=== PATIENT | female | born 1995 | race African-American/Black ===

== ENCOUNTER 2017-06-14 09:03 | Emergency (ER) | payer OTHER ==
[2017-06-14 09:14] VITALS: BP 115/68; PULSE 60; TEMP 97.9; BMI 28.3
--- NOTE | 2017-06-14 10:10 | PDOC ---
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 Patient recently started dancing several months ago, hip hop, states that she developed right knee pain about one week ago thought of sickle cell treated herself pain that normally feels like sickle cell has resolved however patient still with pain to right medial knee. Feels it knee is swollen however there is no evidence on assessment. Able to ambulate without a limp. REVIEW OF SYSTEMS: GENERAL: Afebrile, A&O x3 RESPIRATORY: No cough, wheezing, or hemoptysis. CARDIAC: No CP or SOB MUSCULOSKELETAL: Pain to right medial knee. SKIN : No erythema, no edema, no bruising, no deformity. NEUROLOGICAL: Denies any numbness or tingling. PHYSICAL EXAM: GENERAL: The patient is awake, alert, and fully oriented, in no acute distress. HEAD: Normal with no signs of trauma. RESPIRATORY: Lungs clear bilaterally no rhonchi, rales, or wheezes CARDIAC: S1-S2 audible, no murmur rub or gallop EXTREMITIES: Good ROm with pain to the right medial knee, no fluid appreciated, no bulge sign. No pain to superior or inferior patella. Negative drop test. Negative posterior leg test. No joint laxity noted, no ecchymosis, no deformity , no abrasions ,no edema. +3 popliteal pulse. Negative Homans sign. No calf pain or tenderness, no erythema or edema. MUSCULOSKELETAL: No spinal point tenderness. SKIN: Warm, Dry, normal turgor, no erythema, no edema no bruising. Past History - Past Medical History Allergies/Adverse Reactions: Allergies Allergy/AdvReac Type Severity Reaction Status Date / Time No Known Allergies Allergy Verified 06/14/17 09:08 Home Medications: Ambulatory Orders NK [No Known Home Medication] 06/14/17 Anemia: Yes (SICKLE CELL) Other medical history: Avascular necrosis both shoulders - Immunization History Td Vaccination: Yes Immunization Up to Date: Yes - Suicide/Smoking/Psychosocial Hx Smoking Status: No Smoking History: Never smoked Years of Tobacco Use: 0 Number of Cigarettes Smoked Daily: 0 Cigars Per Day: 0 Information on smoking cessation initiated: No Hx Alcohol Use: No Drug/Substance Use Hx: No Substance Use Type: None *Physical Exam - Vital Signs Last Vital Signs Temp Pulse Resp BP Pulse Ox 97.9 F 60 18 115/68 98 06/14/17 09:06 06/14/17 09:06 06/14/17 09:06 06/14/17 09:06 06/14/17 09:06 ED Treatment Course - RADIOLOGY Radiology Studies Ordered: Category Date Time Status KNEE 3 POS-RIGHT [RAD] Stat Radiology 06/14/17 10:04 Ordered Medical Decision Making - Medical Decision Making 06/14/17 10:09 A/P: Patient here for evaluation of right knee pain. Patient states that she does not have generalized pain pain is only localized to right medial knee and feels localized swelling to area. Able to ambulate with no limp. To be sickle cell crisis. We'll send patient for x-ray to rule out injury or effusion 06/14/17 11:27 X-ray result is still pending, father is in the medical field and concerned patient may have DVT in regards to history of sickle cell, osteomyelitis to same leg. Patient without calf pain, Homans negative however based upon patient 's history of field is reasonable at this time to perform DVT evaluation. Ultrasound ordered. X-ray with no evidence of effusion, ultrasound with no evidence of DVT. Patient placed in immobilizer. Motrin for pain Keep immobilizer on until follow-up with orthopedics I discussed the physical exam findings, ancillary test results and final diagnoses with the patient. I answered all of the patient's questions. The patient was satisfied with the care received and felt comfortable with the discharge plan and treatment plan. The patient will call to arrange follow-up and will return to the Emergency Department with any new, persistent or worsening symptoms. *DC/Admit/Observation/Transfer Diagnosis at time of Disposition: Right knee pain Qualifiers: Chronicity: acute Qualified Code(s): M25.561 - Pain in right knee - Discharge Dispostion Disposition: HOME Condition at time of disposition: Good Admit: No - Referrals Referrals: Matt Mahmood MD [Primary Care Provider] - Mitch Whyte MD [Staff Physician] - - Patient Instructions Printed Discharge Instructions: DI for Knee Pain Additional Instructions: 1. Please return to the emergency department with any redness, swelling, increased pain, or any other concerns. 2. Keep splint on to rest knee, until pain resolved. 3. Please follow up in the office of Dr. Whyte within a week if pain persists. 4. No weightbearing 5. Ice and elevate when at rest. 6. Motrin for pain - Post Discharge Activity Forms/Work/School Notes: Back to Work, Back to School
== END 2017-06-14 12:48 | disposition home or self-care (01) ==
LOC: JERFT 09:03
DX: M25.561 Pain in right knee (principal); D57.1 Sickle-cell disease without crisis; M87.812 Other osteonecrosis, left shoulder; M87.811 Other osteonecrosis, right shoulder; Z87.39 Personal history of other diseases of the musculoskeletal system and connective tissue
CPT/HCPCS: 73562-TC-RT; 84703; 93971-TC; 99281-25

== ENCOUNTER 2017-08-28 11:28 | Emergency (ER) | payer OTHER ==
[2017-08-28 11:41] VITALS: BMI 29.9
--- NOTE | 2017-08-28 12:50 | PDOC ---
Attending Attestation - HPI HPI: 08/28/17 14:16 Pt is a 21 yo F with a PMHx of Sickle Cell Anemia and bilateral shoulder avascular necrosis who presents to the ED with shoulder pain. Patient reports taking percocet at home with no relief and presents to the ED for further evaluation. PCP: Dr. Song - Physicial Exam PE: 08/28/17 14:16 GENERAL: Awake, alert, and fully oriented, in no acute distress HEAD: No signs of trauma EYES: PERRLA, EOMI, conjunctiva clear. +Mild scleral icterus. ENT: Auricles normal inspection, hearing grossly normal, nares patent, oropharynx clear without exudates. Moist mucosa NECK: Normal ROM, supple, no lymphadenopathy, JVD, or masses LUNGS: Breath sounds equal, clear to auscultation bilaterally. No wheezes, and no crackles HEART: Regular rate and rhythm, normal S1 and S2, no murmurs, rubs or gallops ABDOMEN: Soft, nontender, normoactive bowel sounds. No guarding, no rebound. No masses EXTREMITIES: Normal range of motion, no edema. No clubbing or cyanosis. No cords, erythema, or tenderness. +Tender to L lower ribs. +Tender to lateral aspect of L shoulder. NEUROLOGICAL: Cranial nerves II through XII grossly intact. Normal speech, normal gait SKIN: Warm, Dry, normal turgor, no rashes or lesions noted. - Medical Decision Making 08/28/17 14:16 Documentation prepared by Tiff Hughes, acting as medical laboratory scientist for Martha Bowman DO. <Tiff Hughes - Last Filed: 08/28/17 14:16> - Resident Resident Name: Binu Alfaro - ED Attending Attestation I have performed the following: I have examined & evaluated the patient, The case was reviewed & discussed with the resident, I agree w/resident's findings & plan, Exceptions are as noted - Medical Decision Making 08/28/17 12:50 I, Dr. Martha Bowman DO, attest that this document has been prepared under my direction and personally reviewed by me in its entirety. I further attest, that it accurately reflects all work, treatment, procedures and medical decision -making performed by me. 08/28/17 13:42 a/p: 21yo female with hx of SCD and AVN with L shoulder pain and rib pain -has had cough -has had transfusions - last september -is taking hydroxyurea -will check labs, retic count, pain control, ivf hydration -will obtain xrays 08/28/17 15:53 re-eval: shoulder xray shows cystic changes states she will follow up with dr. del cid (her orthopedist) for further eval of shoulder pain pt feeling much better. pt stable for d/c to home hgb stable at 9.6 retic at 7 08/28/17 15:57 pt feeling much better and resquesting to go home. <Martha Bowman - Last Filed: 08/28/17 16:03> Discharge Disposition - Discharge Dispostion Admit: No <Martha Bowman - Last Filed: 08/28/17 16:03> - Diagnosis Sickle cell anemia, Sickle cell pain crisis - Discharge Dispostion Disposition: HOME Condition at time of disposition: Stable - Prescriptions Prescriptions: Acetaminophen W/ Codeine #3 [Tylenol # 3 -] 1 tab PO Q6H PRN #20 tablet MDD 4 tabs PRN Reason: Pain - Referrals Referrals: Matt Mahmood MD [Primary Care Provider] - whitley del cid [Other] - Patient Instructions Printed Discharge Instructions: DI for Sickle Cell Anemia, Pain Crisis -- Adult Additional Instructions: Please continue to take your medications as prescribed. Please also take folate. Please follow up with your orthopedist for the xray results. Please return to the ED with any concerns. Please follow up with your glazier stained glass. - Post Discharge Activity
[2017-08-28] MEDS ORDERED: SODIUM CHLORIDE 0.9% 1000 ML INFUS.BAG IV ONE (12:58)
[2017-08-28] MEDS ORDERED: ACETAMINOPHEN WITH CODEINE 300MG/30MG TABLET PO ONE (12:58)
[2017-08-28] MEDS ORDERED: ACETAMINOPHEN WITH CODEINE 300MG/30MG TABLET ONE (13:17)
[2017-08-28 13:51] LABS: MCH 27.3 pg (25.7-33.7); MCHC 32.8 g/dl (32.0-36.0); MEAN CELL VOLUME 83.3 fl (80-96); MEAN PLT VOLUME 7.8 fl (7.5-11.1); PLATELET COUNT 505 K/MM3 (134-434); RDW 17.6 % (11.6-15.6); WHITE BLOOD COUNT 10.8 K/mm3 (4.0-10.0)
[2017-08-28 14:48] LABS: ANION GAP 9 (8-16); CALCIUM 9.3 mg/dL (8.5-10.1); CO2 26 mmol/L (21-32); GLUCOSE,RANDOM 77 mg/dL (74-106)
[2017-08-28 14:52] LABS: ALK PHOS 82 U/L (45-117); BILIRUBIN,TOTAL 2.9 mg/dL (0.2-1.0); CREATININE 0.6 mg/dL (0.55-1.02); SGPT/ALT 38 U/L (12-78); TOT PROT 7.5 g/dl (6.4-8.2)
[2017-08-28 14:54] LABS: SGOT/AST 53 U/L (15-37)
[2017-08-28 16:29] VITALS: BP 128/70; PULSE 80; TEMP 98
[2017-08-28 16:53] LABS: REACTIVE LYMPHOCYTES 4 % (0-80); TOTAL CELLS COUNTED 100
[2017-08-28 17:04] LABS: ANISOCYTOSIS 2+; MACROCYTOSIS 1+; MICROCYTOSIS 1+; POIKILOCYTOSIS 2+; POLYCHROMASIA 1+
[2017-08-28 17:05] LABS: HOWELL-JOLLY BODIES SEEN
[2017-08-28 17:06] LABS: PLATELET ESTIMATE SLT INCREASE
== END 2017-08-28 16:15 | disposition home or self-care (01) ==
LOC: JERFT 11:28 → JER 11:28
PROC: 3E0337Z Introduction of Electrolytic and Water Balance Substance into Peripheral Vein, Percutaneous Approach (ICD-10-PCS; principal; 2017-08-28)
DX: E87.1 Hypo-osmolality and hyponatremia (principal); D57.00 Hb-SS disease with crisis, unspecified; D57.80 Other sickle-cell disorders without crisis
CPT/HCPCS: 36415; 71020-TC; 73030-TC-LT; 80053; 84703; 85025; 85044; 99283-25

== ENCOUNTER 2017-11-16 13:08 | Emergency (ER) | payer OTHER ==
[2017-11-16 13:13] VITALS: TEMP 98.3; BMI 64.4
--- NOTE | 2017-11-16 14:08 | PDOC ---
History of Present Illness - General History Source: Patient Exam Limitations: No Limitations - History of Present Illness Initial Comments: CHIEF COMPLAINT: 21 y/o afebrile female with PMH sickle cell, osteomyelitis of right leg and avascular necrosis of b/l shoulders c/o left knee pain x 1 week. HISTORY OF PRESENT ILLNESS: The patient states the pain in her left knee/leg started 1 week ago. She admits it was atraumatic, describes the pain as intermittent, sharp when lying down and more dull with weight bearing. She assumed it was her sickle cell pain and treated it with hot packs and tylenol with codeine without improvement. She is able to ambulate with pain. She denies fever, trauma to affected knee, recent travel, numbness/tingling to left lower extremity. Vital signs on arrival are within normal limits. PCP is Dr. Mahmood [employer] Programmer is Dr. Golden REVIEW OF SYSTEMS: GENERAL/CONSTITUTIONAL: No fever/chills. No weakness. No weight change. HEAD, EYES, EARS, NOSE AND THROAT: No change in vision. No ear pain or discharge. No sore throat. CARDIOVASCULAR: No chest pain or shortness of breath. RESPIRATORY: No cough, wheezing, or hemoptysis. GASTROINTESTINAL: No abd pain, nausea, vomiting, diarrhea. GENITOURINARY: No dysuria, frequency, or change in urination. MUSCULOSKELETAL: +left knee pain. No neck or back pain. SKIN: No rash or easy bruising. NEUROLOGIC: No headache, vertigo, loss of consciousness, or loss of sensation. PHYSICAL EXAM: GENERAL: The patient is awake, alert, and fully oriented, in no acute distress. She is well appearing. HEAD: Normal with no signs of trauma. ENT: Pupils equal, round and reactive to light, extraocular movements intact, sclera anicteric, conjunctiva clear. Neck supple. LUNGS: Clear to auscultation bilaterally. Normal excursion. No respiratory distress or use of accessory muscles. CV: RRR, S1/S2, no MRG. Cap refill < 2 sec. ABDOMEN: Soft, non-distended, non-tender even to deep palpation, no hepatomegaly or splenomegaly, no masses. EXTREMITIES: Normal range of motion, very minimal edema to left medial knee and LE. Left LE and knee mildly warmer compared to right. No erythema or streaking to affected extremity. +bridgette's sign left calf. Pain with palpation of left medial knee and left calf. No pain with palpation of tibial plateau. NEUROLOGICAL: Normal speech, normal gait. CN II-XII grossly intact. PSYCH: Normal mood, normal affect. SKIN: Warm, dry, normal turgor, no rashes or lesions noted. <Brenda Wallace - Last Filed: 11/16/17 17:01> <Lluvia Bender - Last Filed: 11/18/17 10:46> - General Chief Complaint: Pain, Acute Stated Complaint: LEGS PAIN Time Seen by Provider: 11/16/17 13:46 Past History - Past Medical History Anemia: Yes (SICKLE CELL) COPD: No - Immunization History Td Vaccination: Yes Immunization Up to Date: Yes - Suicide/Smoking/Psychosocial Hx Smoking Status: No Smoking History: Never smoked Years of Tobacco Use: 0 Have you smoked in the past 12 months: No Number of Cigarettes Smoked Daily: 0 Cigars Per Day: 0 Information on smoking cessation initiated: No Hx Alcohol Use: No Drug/Substance Use Hx: No Substance Use Type: None <Brenda Wallace - Last Filed: 11/16/17 17:01> <Lluvia Bender - Last Filed: 11/18/17 10:46> - Past Medical History Allergies/Adverse Reactions: Allergies Allergy/AdvReac Type Severity Reaction Status Date / Time No Known Allergies Allergy Verified 11/16/17 13:13 Home Medications: Ambulatory Orders Acetaminophen W/ Codeine #3 [Tylenol # 3 -] 1 tab PO Q6H PRN #20 tablet MDD 4 tabs 08/28/17 Acetaminophen W/ Codeine #3 [Tylenol # 3 -] 1 tab PO Q6H #20 tablet MDD 6 Hydroxyurea [Hydrea -] 500 mg PO DAILY 11/16/17 Ibuprofen 800 mg PO TID #30 tablet 11/16/17 *Physical Exam - Vital Signs Last Vital Signs Temp Pulse Resp BP Pulse Ox 98.3 F 83 16 132/98 97 11/16/17 13:11 11/16/17 13:11 11/16/17 13:11 11/16/17 13:11 11/16/17 13:11 <Brenda Wallace - Last Filed: 11/16/17 17:01> - Vital Signs Last Vital Signs Temp Pulse Resp BP Pulse Ox 98.3 F 84 16 132/75 98 11/16/17 13:11 11/16/17 17:40 11/16/17 13:11 11/16/17 17:40 11/16/17 17:40 <Lluvia Bender - Last Filed: 11/18/17 10:46> ED Treatment Course - LABORATORY CBC & Chemistry Diagram: 11/16/17 14:35 11/16/17 14:35 <Brenda Wallace - Last Filed: 11/16/17 17:01> - LABORATORY CBC & Chemistry Diagram: 11/16/17 14:35 11/16/17 14:35 - ADDITIONAL ORDERS Additional order review: 11/16/17 14:35 RBC 2.94 L MCV 81.0 MCHC 35.5 RDW 19.1 H MPV 7.6 Neutrophils % 64.9 Lymphocytes % 28.3 Monocytes % 4.3 Eosinophils % 1.5 Basophils % 1.0 - Medications Given in the ED: ED Medications Discontinued Medications Generic Name Dose Route Start Last Admin Trade Name Jennifer PRN Reason Stop Dose Admin Acetaminophen/Codeine Phosphate 10 ml 11/16/17 17:07 11/16/17 17:40 Tylenol W/Codeine Oral Solution - PO 11/16/17 17:08 10 ml ONCE ONE Administration Sodium Chloride 1,000 mls @ 1,000 mls/hr 11/16/17 14:21 11/16/17 14:45 Normal Saline - IV 11/16/17 15:20 1,000 mls/hr ASDIR STA Administration Ibuprofen 800 mg 11/16/17 14:43 11/16/17 14:45 Caldolor Injection - IVPB 11/16/17 14:44 800 mg ONCE ONE Administration <Lluvia Bender - Last Filed: 11/18/17 10:46> Medical Decision Making - Medical Decision Making A/p: 21 y/o afebrile female with PMH sickle cell disease c/o atraumatic left knee pain that has worsened over the past 1 week. Plan is as follows: 1. Labs 2. Knee xray 3. Doppler left LE 4. Pain control Knee xray IMPRESSION: (wet read) No acute pathology Venous doppler left LE IMPRESSION: No evidence of DVT The patient had IV caldolor and states she feels better. She is asking for some tylenol with codeine. Both of her parents are nurses and her father is an ER nurse. After giving them retic count they are aware she is in crisis. The patient wants to go home and mom and dad both know to give her plenty of fluids, tylenol with codeine and motrin at home. Dad states he will call Dr. Golden on Sunday to schedule follow up appointment. Suggested they return to the ER immediately with any worsening or concerning symptoms. The patient verbalizes understanding of all instructions, has no further questions and is awaiting discharge. <Brenda Wallace - Last Filed: 11/16/17 17:01> *DC/Admit/Observation/Transfer <Brenda Wallace - Last Filed: 11/16/17 17:01> - Attestations Physician Attestion: I reviewed the case with the mid-level practitioner and agree with the mid- level practitioner's assessment, diagnosis and disposition. <Lluvia Bender - Last Filed: 11/18/17 10:46> Diagnosis at time of Disposition: Sickle cell pain crisis, Swelling of knee joint, left - Discharge Dispostion Disposition: HOME Condition at time of disposition: Improved - Prescriptions Prescriptions: Acetaminophen W/ Codeine #3 [Tylenol # 3 -] 1 tab PO Q6H #20 tablet MDD 6 Ibuprofen 800 mg PO TID #30 tablet - Referrals Referrals: Matt Mahmood MD [Primary Care Provider] - Jeanette Golden [Non Staff, Medical] - Call tomorrow - Patient Instructions Printed Discharge Instructions: DI for Sickle Cell Anemia, Pain Crisis -- Adult , DI for Knee Pain Additional Instructions: Discharge Instructions: -A prescription for pain medication has been sent to your pharmacy; it may cause drowsiness -Please apply hot packs to your affected leg -Please take Motrin if needed for extra pain relief -Call Dr. Golden on Sunday to schedule follow up appointment -Return to the ER with any worsening or concerning symptoms. - Post Discharge Activity Forms/Work/School Notes: Back to Work, Back to School
[2017-11-16] MEDS ORDERED: SODIUM CHLORIDE 1,000 ML IV STA (14:21)
[2017-11-16] MEDS ORDERED: IBUPROFEN 800 MG/8 ML IJ IVPB ONE ×2 (14:43→14:44)
[2017-11-16 15:01] LABS: EOS % 1.5 % (0-4.5); HEMATOCRIT 23.8 % (32.4-45.2); HEMOGLOBIN 8.5 GM/dL (10.7-15.3); LYMPH % 28.3 % (8-40); MCH 28.8 pg (25.7-33.7); MCHC 35.5 g/dl (32.0-36.0); MEAN PLT VOLUME 7.6 fl (7.5-11.1); MONO % 4.3 % (3.8-10.2); NEUT % 64.9 % (42.8-82.8); PLATELET COUNT 580 K/MM3 (134-434); RBC 2.94 M/mm3 (3.60-5.2); RDW 19.1 % (11.6-15.6); RETICULOCYTES 9.56 % (0.5-1.5); WHITE BLOOD COUNT 14.9 K/mm3 (4.0-10.0)
[2017-11-16 15:31] LABS: ALBUMIN 4.1 g/dl (3.4-5.0); ALK PHOS 79 U/L (45-117); ANION GAP 8 (8-16); BILIRUBIN,TOTAL 2.6 mg/dL (0.2-1.0); BLOOD UREA NITROGEN 8 mg/dL (7-18); CALCIUM 8.6 mg/dL (8.5-10.1); CHLORIDE 106 mmol/L (98-107); CO2 24 mmol/L (21-32); CREATININE 0.6 mg/dL (0.55-1.02); GLUCOSE,RANDOM 72 mg/dL (74-106); LDH 390 U/L (84-246); POTASSIUM 3.9 mmol/L (3.5-5.1); SGOT/AST 34 U/L (15-37); SGPT/ALT 30 U/L (12-78); SODIUM 138 mmol/L (136-145); TOT PROT 7.4 g/dl (6.4-8.2)
[2017-11-16] MEDS ORDERED: ACETAMINOPHEN W/ CODEINE LIQ 5 ML CUP PO ONE (17:07)
[2017-11-16] MEDS ORDERED: ACETAMINOPHEN W/ CODEINE LIQ 5 ML CUP ONE (17:34)
[2017-11-16 17:37] LABS: ERYTHROCYTE SEDIMENTATION RATE 34 mm/hr (0-20)
[2017-11-16 17:49] VITALS: BP 132/75; PULSE 84
== END 2017-11-16 17:48 | disposition home or self-care (01) ==
LOC: JER 13:08 → JERFT 13:08 → JER 17:48
PROC: 3E0337Z Introduction of Electrolytic and Water Balance Substance into Peripheral Vein, Percutaneous Approach (ICD-10-PCS; principal; 2017-11-16)
PROC: 3E0333Z Introduction of Anti-inflammatory into Peripheral Vein, Percutaneous Approach (ICD-10-PCS; 2017-11-16)
DX: D57.00 Hb-SS disease with crisis, unspecified (principal); M25.462 Effusion, left knee; R26.2 Difficulty in walking, not elsewhere classified
CPT/HCPCS: 36415; 73560-TC-LT-FY; 80053; 82728; 83615; 84466; 84703; 85025; 85044; 85651; 86140; 93971-TC; 99282-25; J7030